=== PATIENT | male | born 1950 | race Caucasian/White ===

== ENCOUNTER 2019-12-30 20:22 | Emergency (ER) | payer MEDICARE, OTHER, SELFPAY ==
[2019-12-30 20:33] VITALS: BP 109/65; PULSE 80; PULSE 81; RESP 13; RESP 16; TEMP 36.4; O2SAT 96; O2SAT 98; BMI 21.2
--- NOTE | 2019-12-30 20:46 | ED_ITS ---
HPI - Fall General Chief Complaint: Fall Stated Complaint: head cut Time Seen by Provider: 12/30/19 20:41 Source: patient Mode of arrival: Family Vehicle History of Present Illness HPI Narrative: 69-year-old gentleman visiting from out of town with a history of cardiac disease, status post ablation for atrial and ventricular tachycardias with atrial sensed pacemaker in place. The family was out on a boat for the entire afternoon and as they were climbing back up to the doc he was walking fast became slightly dizzy and stumbled fell forward feels like he hit his head likely on the hand rail and caught his fall with his hands. He has a laceration just above his eye. There is no loss of consciousness no dyspnea no chest pain no palpitations. He was able to get up by himself is having no pain or dizziness at this time. He notes that his most recent INR was 2.3 and is due to be checked after he gets home next week. Related Data Allergies Allergy/AdvReac Type Severity Reaction Status Date / Time lisinopril Allergy Cough Verified 12/30/19 21:00 Review of Systems Review of Systems Narrative: Pertinent positive and negative findings as per HPI Remainder of review of systems is otherwise unremarkable for Constitutional: Fevers, chills, weakness ENT: No sore throat, neck pain, ear pain CV: Chest pain, palpitations, dyspnea on exertion Respiratory: Cough, wheeze, dyspnea GI: Nausea, vomiting, diarrhea, change in bowel habits, black or bloody stools : Dysuria, hematuria, flank pain MS: Muscle weakness, numbness, joint swelling or warmth Skin: Rashes, nonhealing lesions Patient History Medical History (Updated 12/30/19 @ 23:18 by Jennifer Hayden MD) Anticoagulated (Acute) Cardiac resynchronization therapy pacemaker (PLASTERER SPRAY GUN-P) in place (Acute) Surgical History (Updated 12/30/19 @ 20:49 by Jennifer Hayden MD) History of cardiac radiofrequency ablation (Acute) Social History Smoking Status: Never smoker Smoking Status: Never smoker Substance Use Type: does not use Exam Narrative Exam Narrative: General: Healthy appearing, in no acute distress. Able to give a complete and coherent history. Well-nourished well-developed HEENT: 3 cm laceration above the left eyebrow, full-thickness bleeding is controlled. No skull tenderness to suggest skull fracture. Moist mucous membranes, normal sclera with reactive pupils, Neck: No JVD, supple, no midline tenderness along the cervical spine Respiratory: Lungs are clear to auscultation, no wheezing no rales no rhonchi. Full and symmetrical air movement Cardiac: Regular rate and rhythm no murmurs no bruits Abdomen: Soft nontender good bowel tones, no flank pain Skin: Warm and dry, no rashes Neurologic: Grossly neurologically intact with no obvious asymmetries or abnor malities Extremities: No trauma, well perfused Psych: Cooperative, appropriate insight and affect Initial Vital Signs Initial Vital Signs: Vital Signs Temperature 97.5 F L 12/30/19 20:33 Pulse Rate 81 12/30/19 20:33 Respiratory Rate 16 12/30/19 20:33 Blood Pressure 109/65 12/30/19 20:33 Pulse Oximetry 96 12/30/19 20:33 Procedures Laceration Repair Laceration 1: Site: face Side (If applicable): left Size (cm): 4 Description: irregular and clean Depth: simple, single layer Local Anesthetic: lidocaine 1% and with bicarb Amount of anesthesia used (mL): 4 Pre-repair: wound explored and deep structures intact Skin layer closed with: nylon Size (cm): 4-0 Number of sutures: 3 Technique: simple, interrupted and horizontal mattress Course Orders Ordered: ED Orders 12/30/19 20:51 CT head/brain wo con Stat Discontinued Medications Lidocaine/Sodium Bicarbonate (Buffered Lidocaine 10 Ml Syr) 10 ml INJ NOW ONE Stop: 12/30/19 20:55 Last Admin: 12/30/19 21:06 Dose: 10 ml [facility] V[facility] Signs Vital signs: Vital Signs - 8 hr 12/30/19 20:33 12/30/19 21:06 12/30/19 21:30 Temperature 97.5 F L Pulse Rate 80 80 80 Respiratory Rate 13 17 Blood Pressure 109/65 Pulse Oximetry 98 97 97 12/30/19 22:00 Temperature Pulse Rate 80 Respiratory Rate 22 Blood Pressure Pulse Oximetry 97 MDM - Fall Medical Records Attestation: I reviewed the patient's medical records. Imaging Data CT scan - head: Radiologist's Impression: IMPRESSION: 1. No acute intracranial abnormality. 2. Mild cerebral volume loss and chronic white matter small vessel ischemic changes. 3. Probable extra-axial arachnoid cyst in the posterior fossa. Dictated by: Horace Franco M.D. on 12/30/2019 at 21:21 ECG Data Attestation: I personally reviewed and interpreted this ECG as follows: Interpretation: Atrial sensed ventricular pacing at a rate of 80 beats per minute MDM Narrative Medical decision making narrative: 69-year-old gentleman anticoagulated, stumbled and fell while walking up a dock. 4 cm laceration just over the left eyebrow with no deeper structures involved. CT scan of the head is u nremarkable. Laceration is sutured without difficulty. Patient is safe for discharge home. Discharge Plan Departure Patient Disposition: Home Clinical Impression: Anticoagulated, Laceration Fall Qualifiers: Encounter type: initial encounter Qualified Code(s): W19.XXXA - Unspecified fall, initial encounter Concussion Qualifiers: Encounter type: initial encounter Loss of consciousness presence/duration: without LOC Qualified Code(s): S06.0X0A - Concussion without loss of consciousness, initial encounter Instructions: DI for Concussion, DI for Laceration Repair Activity Restrictions/Additional Instructions: Thank you for coming in today Your head CT was nice and normal, there are no skull fractures and no bleeding inside The cut above your eyebrow has the equivalent of 5 stitches to pull back together nicely. You will need to have these removed on or about January 04. If it seems like her developing an infection, having more pain notice new findings that you want to have further evaluated, please feel free to return to the emergency department I hope the rest of you holiday goes well
--- NOTE | 2019-12-30 20:51 | DI.CT.S_ITS ---
PROCEDURE: CT HEAD/BRAIN WO CON INDICATIONS: fall, hit head, on coumadin TECHNIQUE: Noncontrast 4.5 mm thick angled axial sections acquired from the foramen magnum to the vertex, with coronal and sagittal reformats. For radiation dose reduction, the following was used: automated exposure control, adjustment of mA and/or kV according to patient size. COMPARISON: None. FINDINGS: Image quality: Excellent. CSF spaces: Basal cisterns are patent. The ventricles are symmetric in size and shape. There is mild cerebral volume loss, with resultant ventricular and sulcal prominence. There is a lobulated midline extra-axial cystic lesion demonstrating CSF density posterior to the cerebellum in the posterior fossa likely representing an arachnoid cyst. Brain: No intracranial hemorrhage, mass, or mass effect. There are subcortical, periventricular and deep white matter hypodensities consistent with mild chronic small vessel ischemic changes. There is intracranial internal carotid artery atherosclerosis. Skull and face: Calvarium and visualized facial bones appear intact, without suspicious lesions. Sinuses: Visualized sinuses and mastoids are clear. IMPRESSION: 1. No acute intracranial abnormality. 2. Mild cerebral volume loss and chronic white matter small vessel ischemic changes. 3. Probable extra-axial arachnoid cyst in the posterior fossa. Dictated by: Horace Franco M.D. on 12/30/2019 at 21:21 Approved by: Horace Franco M.D. on 12/30/2019 at 21:24
[2019-12-30 21:06] VITALS: PULSE 80; O2SAT 97
[2019-12-30] MEDS: LIDO 1%/SOD BICARB 8.4% (10ML) 10 ML SYRINGE INJ (21:06)
[2019-12-30 21:30] VITALS: PULSE 80; RESP 17; O2SAT 97
[2019-12-30 22:00] VITALS: PULSE 80; RESP 22; O2SAT 97
[2019-12-30 23:25] VITALS: BP 112/90
[2019-12-30] MEDS: ACETAMINOPHEN 325 MG TABLET 975 MG PO (23:39)
[2019-12-30] MEDS: BACITRACIN OINT 0.9 GM PCKT 1 APPLIC TOP (23:39)
== END 2019-12-30 23:25 | disposition home or self-care (01) ==
PROVIDERS: Emergency Provider Emergency Medicine
DX: S01.112A Laceration without foreign body of left eyelid and periocular area, initial encounter (principal); W19.XXXA Unspecified fall, initial encounter; S06.0X0A Concussion without loss of consciousness, initial encounter; R42 Dizziness and giddiness; Z95.0 Presence of cardiac pacemaker; I47.2 Ventricular tachycardia; Z79.01 Long term (current) use of anticoagulants
CPT/HCPCS: 12013; 70450; 93005; 99284